=== PATIENT | female | born 1990 ===

== ENCOUNTER 2017-05-07 13:09 | Emergency (ER) | payer BC ==
--- NOTE | 2017-05-07 15:27 | UC ---
Upper Extremity HPI - HPI Summary HPI Summary: pt was out fpr a run and fell on some ice yesterday landing on her R elbow. she notes pain and swelling plus feels it is hard to straighten the elbow. it has numb but that has resolved. Tetanus within 10 years. Pt washed the wound. - History of Current Complaint Stated Complaint: RT ELBOW PAIN S/P FALL YESTERDAY Time Seen by Provider: 05/07/17 15:14 Hx Obtained From: Patient ?: No Onset/Duration: Sudden Onset Severity Initially: Moderate Severity Currently: Moderate Character: Aching Aggravating Factor(s): Movement Alleviating Factor(s): Nothing Associated Signs And Symptoms: Positive: Swelling. Negative: Redness - Risk Factors Non-Orthopedic Risk Factor: Negative - Allergies/Home Medications Allergies/Adverse Reactions: Allergies Allergy/AdvReac Type Severity Reaction Status Date / Time No Known Allergies Allergy Verified 05/07/17 15:26 Home Medications: Home Medications Ibuprofen TAB* [Advil TAB*] 200 mg PO Q4H PRN 05/07/17 [History Confirmed ] PMH/Surg Hx/FS Hx/Imm Hx - Additional Past Medical History Additional PMH: Blind OS - Surgical History Surgical History: Yes - implant L eye - Social History Occupation: Employed Full-time Lives: Alone Alcohol Use: Rare Substance Use Type: None Smoking Status (MU): Never Smoked Tobacco - Immunization History Vaccination Up to Date: Yes Review of Systems Constitutional: Negative Skin: Negative Eyes: Negative ENT: Negative Respiratory: Negative Cardiovascular: Negative Gastrointestinal: Negative Genitourinary: Negative Motor: Negative Neurovascular: Negative Musculoskeletal: Other: - pain R elbow Neurological: Negative Psychological: Negative Is Patient Immunocompromised?: No All Other Systems Reviewed And Are Negative: Yes Physical Exam Triage Information Reviewed: Yes Appearance: Well-Appearing Vital Signs Reviewed: Yes Eyes: Positive: Conjunctiva Clear, Other: - prosthesis OS Neck: Positive: Supple, No Lymphadenopathy, Tenderness @ - L side of trapezius which is very mild Respiratory: Positive: Chest non-tender, Lungs clear, Normal breath sounds Cardiovascular: Positive: RRR, No Murmur Abdomen Description: Positive: Nontender, No Organomegaly, Soft Bowel Sounds: Positive: Present Musculoskeletal: Positive: Other: - RUE=shoulder, forearm,wrist and hand are atraumatic. Hand has full s/v/m function. R elbow has mild posterior swelling and abrasion just distal to the olecranon process. The elbow has full rom but pt c/o pain over injury with full extension. Upper Extremity Course/Dx - Course Course Of Treatment: abrasion cleaned, no over fx , there is a R elbow joint effusion. will sling and refer to orthopedics - Differential Dx/Diagnosis Provider Diagnoses: joint effusion R elbow, abrasion R elbow. Discharge - Discharge Plan Condition: Stable Disposition: HOME Patient Education Materials: Abrasion (ED), Swollen Joint (ED) Referrals: Zander Rosales MD [Medical Doctor] - As Soon As Possible Additional Instructions: SLING UNTIL CLEARED
[2017-05-07 15:38] VITALS: BP 111/68
--- NOTE | 2017-05-07 15:54 | RAD ---
Indication: Right elbow injury. 4 views of the right elbow demonstrates anterior fat pad sign consistent with joint effusion. No definitive fractures noted although an occult fracture is not excluded and follow-up imaging is suggested. IMPRESSION: There is a joint effusion noted. There is an anterior fat pad sign. No fracture is definitively identified. Follow-up imaging is suggested.
== END 2017-05-07 16:38 | disposition home or self-care (01) ==
LOC: UCCORT 13:09
DX: M25.421 Effusion, right elbow (principal); S50.311A Abrasion of right elbow, initial encounter; W00.0XXA Fall on same level due to ice and snow, initial encounter; Y93.02 Activity, running; Y92.9 Unspecified place or not applicable
CPT/HCPCS: 99203; G0463

== ENCOUNTER 2017-09-10 09:25 | Emergency (ER) | payer BC ==
[2017-09-10 10:00] VITALS: BP 108/61
--- NOTE | 2017-09-10 10:35 | UC ---
Ear Complaint HPI - HPI Summary HPI Summary: Left ear pain worse a few days ago. She has used ear drops otc with some help. She had poor hearing as well. This is now improved after flushing ears and ear wax has been removed. - History of Current Complaint Chief Complaint: UCEar Stated Complaint: LFT EAR PLUGGED Time Seen by Provider: 09/10/17 10:12 Hx Obtained From: Patient Hx Last Menstrual Period: "middle of July" ?: No Onset/Duration: Gradual Onset, Lasting Days Severity Initially: Moderate Severity Currently: Moderate Pain Intensity: 0 Aggravating Factors: Nothing Alleviating Factors: OTC Meds Associated Signs/Symptoms: Positive: Hearing Loss - Allergies/Home Medications Allergies/Adverse Reactions: Allergies Allergy/AdvReac Type Severity Reaction Status Date / Time No Known Allergies Allergy Verified 09/10/17 09:55 Home Medications: Home Medications D-Methorphan/PE/Acetaminophen [Tylenol Cold Max Day Caplet] 1 each PO Q4H PRN [History Confirmed 09/10/17] PMH/Surg Hx/FS Hx/Imm Hx Previously Healthy: No - Left eye blindness. - Surgical History Surgical History: Yes Surgery Procedure, Year, and Place: Left Eye Removed (Blindness), 2017, [place] - Family History Known Family History: Positive: None - Social History Alcohol Use: Occasionally Substance Use Type: None Smoking Status (MU): Never Smoked Tobacco - Immunization History Most Recent Tetanus Shot: 2016 Vaccination Up to Date: Yes Review of Systems ENT: Ear Ache All Other Systems Reviewed And Are Negative: Yes Physical Exam Triage Information Reviewed: Yes Appearance: Well-Appearing, No Pain Distress, Well-Nourished Vital Signs: Initial Vital Signs Temp 98.9 F 09/10/17 09:54 Pulse 66 09/10/17 09:54 Resp 16 09/10/17 09:54 BP 108/61 09/10/17 09:54 Pulse Ox 99 09/10/17 09:54 Vital Signs Reviewed: Yes Eyes: Positive: Conjunctiva Clear ENT: Positive: Normal ENT inspection, TMs normal. Negative: TM bulging, TM dull , TM red Neck: Positive: Supple, Nontender, No Lymphadenopathy Respiratory: Positive: Lungs clear, Normal breath sounds, No respiratory distress, No accessory muscle use. Negative: Respiratory distress, Decreased breath sounds, Accessory muscle use, Crackles, Rhonchi, Stridor Cardiovascular: Positive: No Murmur, Pulses Normal Abdomen Description: Positive: No Organomegaly, Soft. Negative: Distended, Guarding Musculoskeletal: Positive: Strength Intact, ROM Intact, No Edema Neurological: Positive: Alert, Muscle Tone Normal. Negative: Fatigued Psychological: Positive: Age Appropriate Behavior Skin: Negative: rashes Ear Complaint Course/Dx - Differential Dx/Diagnosis Provider Diagnoses: cerumen impaction. otitis externa Discharge - Sign-Out/Discharge Documenting (check all that apply): Discharge/Admit/Transfer - Discharge Plan Condition: Good Disposition: HOME Prescriptions: Ofloxacin 0.3% OTIC.ANNALISE* [Floxin 0.3% OTIC.ANNALISE*] 1 drop .SEE ORDER TID #1 [id number] Patient Education Materials: Earache (ED), Cerumen Impaction (ED) Referrals: Non Staff,Doctor [Primary Care Provider] - - Billing Disposition and Condition Condition: GOOD Disposition: Home
== END 2017-09-10 10:33 | disposition home or self-care (01) ==
LOC: UCCORT 09:25
DX: H61.20 Impacted cerumen, unspecified ear (principal); H60.90 Unspecified otitis externa, unspecified ear; H54.40 Blindness, one eye, unspecified eye
CPT/HCPCS: 99213; G0463

== ENCOUNTER 2018-08-05 15:19 | Emergency (ER) | payer BC ==
[2018-08-05 16:01] VITALS: BP 119/61
--- NOTE | 2018-08-05 16:24 | UC ---
Respiratory Complaint HPI - HPI Summary HPI Summary: Pt presents with c/o onset of nasal congestion , PND, ST, cough, and feeling chest tightness and a little SOB. Pt denies fever, chills, nausea, vomiting, or wheezing, - History of Current Complaint Chief Complaint: UCRespiratory Stated Complaint: COLD SX'S Time Seen by Provider: 08/05/18 16:04 Hx Obtained From: Patient Hx Last Menstrual Period: 07/30/18 ?: No Onset/Duration: Gradual Onset, Lasting Days - 4, Still Present Timing: Constant Severity Initially: Mild Severity Currently: Mild Pain Intensity: 5 Character: Cough: Nonproductive Aggravating Factors: Exertion, Deep Breaths, Recumbent Position Alleviating Factors: Nothing Associated Signs And Symptoms: Positive: URI, Nasal Congestion - Risk Factors Pulmonary Embolism Risk Factors: Negative Cardiac Risk Factors: Negative Pseudomonas Risk Factors: Negative Tuberculosis Risk Factors: Negative - Allergies/Home Medications Allergies/Adverse Reactions: Allergies Allergy/AdvReac Type Severity Reaction Status Date / Time No Known Allergies Allergy Verified 08/05/18 16:01 Home Medications: Home Medications Multivitamin [Prd-Cuvmcj-[id number]] 1 each PO DAILY 08/05/18 [History Confirmed ] PMH/Surg Hx/FS Hx/Imm Hx Previously Healthy: Yes - Surgical History Surgical History: Yes Surgery Procedure, Year, and Place: Left Eye Removed (Blindness), 2017, [place] - Family History Known Family History: Positive: Cardiac Disease - Social History Occupation: Employed Full-time Lives: With Family Alcohol Use: Occasionally Substance Use Type: None Smoking Status (MU): Never Smoked Tobacco Have You Smoked in the Last Year: No - Immunization History Most Recent Tetanus Shot: 2016 Vaccination Up to Date: Yes Review of Systems All Other Systems Reviewed And Are Negative: Yes Constitutional: Positive: Fatigue Skin: Positive: Negative Eyes: Positive: Negative ENT: Positive: Sore Throat, Nasal Discharge, Sinus Congestion Respiratory: Positive: Shortness Of Breath - mild, with exertion, Cough Cardiovascular: Positive: Negative Gastrointestinal: Positive: Negative Genitourinary: Positive: Negative Motor: Positive: Negative Neurovascular: Positive: Negative Musculoskeletal: Positive: Negative Neurological: Positive: Negative Psychological: Positive: Negative Is Patient Immunocompromised?: No Physical Exam Triage Information Reviewed: Yes Appearance: Well-Appearing Vital Signs: Initial Vital Signs Temp 98.8 F 08/05/18 15:52 Pulse 63 05/15/19 15:52 Resp 18 08/05/18 15:52 BP 119/61 08/05/18 15:52 Pulse Ox 99 08/05/18 15:52 Vital Signs Reviewed: Yes Eye Exam: Normal ENT: Positive: Nasal congestion Dental Exam: Normal Neck exam: Normal Neck: Positive: Supple, Nontender, No Lymphadenopathy Respiratory Exam: Normal Respiratory: Positive: Lungs clear, Normal breath sounds Cardiovascular Exam: Normal Musculoskeletal Exam: Normal Neurological Exam: Normal Psychological Exam: Normal Skin Exam: Normal Respiratory Course/Dx - Differential Dx/Diagnosis Differential Diagnosis/HQI/PQRI: Bronchitis, Influenza Provider Diagnosis: Viral syndrome Discharge - Sign-Out/Discharge Documenting (check all that apply): Patient Departure All imaging exams completed and their final reports reviewed: No Studies - Discharge Plan Condition: Stable Disposition: HOME Prescriptions: Albuterol HFA INHALER* [Ventolin HFA Inhaler*] 1 - 2 puff INH Q4H PRN #1 mdi PRN Reason: Sob/Wheezing Cetirizine* [ZyrTEC 10 MG TAB*] 10 mg PO DAILY #10 tab Guaifenesin/Pseudoephedrne HCl [Mucinex D ER 600-60 mg Tablet] 1 each PO Q12H # 14 tab.er.12h predniSONE TAB* [Deltasone 10 MG TAB*] 30 mg PO DAILY #12 tab Patient Education Materials: Viral Syndrome (ED) Referrals: Raegan Hunt MD [Primary Care Provider] - If Needed - Billing Disposition and Condition Condition: STABLE Disposition: Home - Attestation Statements Provider Attestation: This patient was not seen by me. I was available for consult.
== END 2018-08-05 16:41 | disposition home or self-care (01) ==
LOC: UCCORT 15:19
DX: B34.9 Viral infection, unspecified (principal)
CPT/HCPCS: 99212; G0463